=== PATIENT | female | born 1955 | race Caucasian/White ===

== ENCOUNTER 2024-02-28 09:10 | Emergency (ER) | payer MEDICARE, MEDICAID ==
[~2024-02-28] VITALS: Ht 152.4 cm; Wt 116.4 kg
[2024-02-28 11:06] LABS: COVID19 ANTIGEN SOFIA FIA NEGATIVE (NEGATIVE)
[2024-02-28 11:07] LABS: Rapid Influenza A Negative (Negative); Rapid Influenza B Negative (Negative)
[2024-02-28 12:16] VITALS: BP 111/57; PULSE 79; RESP 18; TEMP 97.8; O2SAT 91
== END 2024-02-28 12:23 | disposition home or self-care (01) ==
LOC: ER 09:10
DX: F41.9 Anxiety disorder, unspecified (principal); J44.9 Chronic obstructive pulmonary disease, unspecified; I10 Essential (primary) hypertension; Z86.16 Personal history of COVID-19; Z20.822 Contact with and (suspected) exposure to COVID-19
CPT/HCPCS: 36415; 87426; 87804

== ENCOUNTER 2025-08-10 10:40 | Emergency (ER) | payer MEDICAID ==
[~2025-08-10] VITALS: Ht 152.4 cm; Wt 90.9 kg
--- NOTE | 2025-08-10 11:40 | ED.PDOC ---
General HPI Comments 70 y/o F, with PMHx of UTI's, COPD, bronchitis, and HTN presents to the ED for CC of dysuria. Patient states, she has been experiencing reoccurring urinary symptoms of frequency and dysuria x1week. Patient reports, being seen by her PCP for SS and being prescribed Amoxiclav; endorses finishing course of Abx with no change in symptoms. Patient denies fever, chills, or hematuria. Chief Complaint: Urinary Time Seen by MD: 11:40 Reviewed notes: Nurses Notes, Medications, Allergies Allergies: Coded Allergies: NO KNOWN ALLERGIES (Unverified , 08/10/25) Information Source: Patient Mode of Arrival: Wheelchair Severity: Moderate Timing: Weeks Duration: Since onset Prehospital treatment: None Symptoms: Frequency History of: UTI Modifying factors: None associated signs and symptoms: Dysuria, Frequency Past Medical History PAST MEDICAL HISTORY: COPD, HTN Surgical History: Denies all surgeries [employer] History: Denies all [employer] Hx Family History Family History: Unknown Social History Smoker: Non-Smoker Alcohol: Denies ETOH Use Drugs: Denies Drug Use Lives In: Home Constitutional: denies: chills, diaphoresis, fatigue, fever, malaise, sweats, weakness, others EENTM: denies: blurred vision, double vision, ear bleeding, ear discharge, ear drainage, ear pain, ear ringing, eye pain, eye redness, hearing loss, mouth pain, mouth swelling, nasal discharge, nose bleeding, nose congestion, nose pain, photophobia, tearing, throat pain, throat swelling, voice changes, others Respiratory: denies: cough, hemoptysis, orthopnea, SOB at rest, shortness of breath, SOB with excertion, stridor, wheezing, others Cardiovascular: denies: chest pain, dizzy spells, diaphoresis, Dyspnea on exertion, edema, irregular heart beat, left arm pain, lightheadedness, palpitations, PND, syncope, others Gastrointestinal: denies: abdomen distended, abdominal pain, blood streaked bowels, constipated, diarrhea, dysphagia, difficulty swallowing, hematemesis, melena, nausea, poor appetite, poor fluid intake, rectal bleeding, rectal pain, vomiting, others Genitourinary: reports: dysuria, frequency; denies: abnormal vagina bleeding, burning, dyspareunia, flank pain, hematuria, incontinence, pain, , vagina discharge, urgency, others Neurological: denies: dizziness, fainting, headache, left sided numbness, left sided weakness, numbness, paresthesia, pre-existing deficit, right sided numbness, right sided weakness, seizure, speech problems, tingling, tremors, weakness, others Musculoskeletal: denies: back pain, gout, joint pain, joint swelling, muscle pain, muscle stiffness, neck pain, others Integumetry: denies: bruises, change in color, change in hair/nails, dryness, laceration, lesions, lumps, rash, wounds, others Allergic/Immunocompromised: denies: Difficulty Healing, Frequent Infections, Hives, Itching, others Hematologic/Lymphatic: denies: anemia, blood clots, easy bleeding, easy bruising, swollen glands, others Endocrine: denies: excessive hunger, excessive sweating, excessive thirst, excessive urination, flushing, intolerance to cold, intolerance to heat, unexplained weight gain, unexplained weight loss, others Psychiatric: denies: anxiety, bipolar disorder, depression, hopeless, panic disorder, schizophrenia, sleepless, suicidal, others All Other Systems: Reviewed and Negative Physical Exam General Appearance: No Apparent Distress, Normal HEENT: Normal ENT Inspection, Pharynx Normal Neck: Full Range of Motion, Non-Tender, Normal, Normal Inspection Respiratory: Chest Non-Tender, Lungs Clear, No Accessory Muscle Use, No Respiratory Distress, Normal Breath Sounds Cardiovascular: No Edema, No Murmur, No Gallop, Normal Peripheral Pulses, Regular Rate/Rhythm Breast Exam: Deferred Gastrointestinal: No Organomegaly, Non Tender, No Pulsatile Mass, Normal Bowel Sounds, Soft Genitalia: Deferred Pelvic: Deferred Rectal: Deferred Extremities: No calf tenderness, Normal capillary refill, Normal inspection, Normal range of motion, Non-tender, No pedal edema Musculoskeletal : Apperance: Normal Neurologic: Alert, electric motorman II-XII nml as Tested, No Motor Deficits, Normal Affect, Normal Mood, No Sensory Deficits Cerebellar Function: Normal Reflexes: Normal Skin: Dry, Normal Color, Warm Lymphatic: No Adenopathy Was a procedure done? Was a procedure done?: No Differential Diagnosis Kidney stone (Female): Pyelonephritis, Urinary obstruction, Urolithiasis Kidney stone (Male): Urinary tract infection Penile/Scrotal: Urolithiasis, Urinary Retention Urinary Problem (Male): Urolithiasis, UTI Urinary Problem (Female): Pyelonephritis, Urolithiasis, UTI X-Ray, Labs, Meds, VS Vital Signs Date Time Temp Pulse Resp B/P (MAP) Pulse Ox O2 Delivery O2 Flow Rate FiO2 08/10/25 12:37 70 16 94 Room Air 08/10/25 12:37 97.7 70 16 147/86 (106) 100 97.7 08/10/25 11:59 Room Air* 0 21 08/10/25 11:57 87 17 130/74 (92) 99 08/10/25 10:42 99.2 119 18 116/77 94 99.2 Lab Test 08/10/25 12:36 08/10/25 11:56 Range/Units Urine Color Colorless Yellow Urine Clarity Ex.turbid Clear Urine pH 6.0 5.0-9.[address] [place] 1.011 1.001-1.035 Urine Protein Trace H Negative Urine Ketones Negative Negative Urine Blood 1+ H Negative /uL Urine Nitrite Negative Negative Urine Bilirubin Negative Negative Urine Urobilinogen Normal Negative mg/dL Urine Leukocyte Esterase 3+ Negative /uL Urine RBC 4 0 - 4 /hpf Urine WBC Clumps Present None Seen /hpf Urine Microscopic WBC 1494 H 0-5 /HPF Urine Squamous Epithelial Cells None seen <5 /hpf Urine Bacteria Few H None Seen /hpf Urine Glucose Normal Normal mg/dL White Blood Count 9.6 4.4-10.8 10^3/uL Red Blood Count 4.33 4.0-5.20 10^6/uL Hemoglobin 12.5 12.2-16.2 g/dL Hematocrit 37.7 36.0-46.0 % Mean Corpuscular Volume 87.0 80.0-100.0 fL Mean Corpuscular Hemoglobin 28.8 28.0-32.0 pg Mean Corpuscular Hemoglobin Concent 33.1 32.0-36.0 g/dL Red Cell Distribution Width 14.6 H 11.8-14.3 % Platelet Count 272 140-450 10^3/uL Mean Platelet Volume 7.7 6.9-10.8 fL Neutrophils (%) (Auto) 86.4 H 37.0-80.0 % Lymphocytes (%) (Auto) 5.1 L 10.0-50.0 % Monocytes (%) (Auto) 8.2 0.0-12.0 % Eosinophils (%) (Auto) 0.1 0.0-7.0 % Basophils (%) (Auto) 0.2 0.0-2.0 % Neutrophils # (Auto) 8.3 1.6-8.6 10 ^3/uL Lymphocytes # (Auto) 0.5 0.4-5.4 10 ^3/uL Monocytes # (Auto) 0.8 0-1.3 10 ^3/uL Eosinophils # (Auto) 0 0-0.8 10 ^3/uL Basophils # (Auto) 0 0-0.2 10 ^3/uL Nucleated Red Blood Cells 0.1 % Sodium Level 137 136-145 mmol/L Potassium Level 3.0 L 3.5-5.1 mmol/L Chloride Level 101 98-107 mmol/L Carbon Dioxide Level 24 20-31 mmol/L Anion Gap 12 5-15 Blood Urea Nitrogen 14 9-23 mg/dL Creatinine 1.10 H 0.550-1.02 mg/dL Glomerular Filtration Rate Calc 54 >90 mL/min BUN/Creatinine Ratio 12.7 10.0-20.0 Serum Glucose 88 74-106 mg/dL Calcium Level 8.7 8.7-10.4 mg/dL Time of 1ST Reevaluation: 12:10 Reevaluation 1ST: Unchanged Time of 2ND Reevaluation: 13:50 Reevaluation 2ND: Resolved Patient Education/Counseling: Diagnosis, Treatment, Prognosis, Need For Follow Up Family Education/Counseling: Diagnosis, Treatment, Prognosis, Need For Follow Up, No Family Present Comments This is a patient who presents with a UTI symptoms. She does not have sepsis. She does not have any evidence of pyelonephritis. However she does not have a urinary tract infection. She says she has taken some amoxicillin that was left over. I offered the patient to be admitted to the hospital as she may have was constitute a as failure of treatment for the urinary tract infection however the patient refused. She understands the risks and benefits and chooses to go home. I will start her on Cipro. SEPSIS Sepsis Screen Date sepsis recognized/suspect: Aug 10, 2025 Time Sepsis recognized/suspect: 1042 Recent Procedure: No On Antibiotic Therapy: No Respiratory Rate >20: No Heart Rate >90: Yes Temp<36 C (96.8 F) or >38.3 C: No SBP <90 or MAP <65 mmHG: No New Acute Mental Status Change: No Is the patient on CPAP, BIPAP,: No Physician Orders Potassium Er Tablet (Klor-Con Tablet) (08/10/25 13:45) Cephalexin Capsule (Keflex Capsule) (08/10/25 13:45) Vital Signs Date Time Temp Pulse Resp B/P (MAP) Pulse Ox O2 Delivery O2 Flow Rate FiO2 08/10/25 12:37 70 16 94 Room Air 08/10/25 12:37 97.7 70 16 147/86 (106) 100 97.7 08/10/25 11:59 Room Air* 0 21 08/10/25 11:57 87 17 130/74 (92) 99 08/10/25 10:42 99.2 119 18 116/77 94 99.2 Laboratory Tests Test 08/10/25 11:56 White Blood Count 9.6 10^3/uL (4.4-10.8) Departure 1 Departure Time of Disposition: 13:37 Impression: Primary Impression: UTI (urinary tract infection) Additional Impression: Hypokalemia Disposition: HOME / SELF CARE / HOMELESS Condition: Good e-Prescriptions Ciprofloxacin Hcl (Cipro) 500 Mg Tab 500 MG PO DAILY for 7 Days, #7 TAB Prov: ALLI CHEEK MD 08/10/25 Discharged With: Self, Spouse Critical Care Note Critical Care Time?: No Stability Stability form required: No Heart Score Heart Score: Heart Score Response (Comments) Value History N/A 0 EKG N/A 0 Age N/A 0 Risk Factors N/A 0 Troponin N/A 0 Total 0 I personally scribed for ALLI CHEEK MD ([email or web address]) on 08/10/25 at 11:40. Electronically submitted by Lizy Adorno ([email or web address]). I personally scribed for ALLI CHEEK MD ([email or web address]) on 08/10/25 at 12:24. Electronically submitted by Lizy Adorno ([email or web address]). I personally scribed for ALLI CHEEK MD ([email or web address]) on 08/10/25 at 12:30. Electronically submitted by Lizy Adorno ([email or web address]). ALLI CHEEK MD Aug 10, 2025 11:40
[2025-08-10 12:22] LABS: Hematocrit 37.7 % (36.0-46.0); Hemoglobin 12.5 g/dL (12.2-16.2); Mean Corpuscular Hemoglobin 28.8 pg (28.0-32.0); Mean Corpuscular Volume 87.0 fL (80.0-100.0); Nucleated Red Blood Cells % 0.1 %
[2025-08-10 12:25] LABS: Chloride 101 mmol/L (98-107); Sodium 137 mmol/L (136-145)
[2025-08-10 12:26] LABS: Anion Gap 12 (5-15); Carbon Dioxide 24 mmol/L (20-31)
[2025-08-10 12:27] LABS: Calcium 8.7 mg/dL (8.7-10.4)
[2025-08-10 12:31] LABS: BUN/Creatinine Ratio 12.7 (10.0-20.0); Blood Urea Nitrogen 14 mg/dL (9-23); Glucose 88 mg/dL (74-106)
[2025-08-10 12:37] VITALS: BP 147/86; PULSE 70; RESP 16; TEMP 97.7; O2SAT 94
[2025-08-10 12:44] LABS: Potassium 3.0 mmol/L (3.5-5.1)
[2025-08-10 13:10] LABS: Urine Protein, UAD TRACE (Negative); Urine WBC Clumps PRESENT /hpf (None Seen)
[2025-08-10] MEDS ORDERED: CEPHALEXIN 250 MG CAP PO ONE (13:45)
[2025-08-10] MEDS ORDERED: CIPR-173 PO (13:51)
[2025-08-10] MEDS: POTASSIUM CHL 20 Meq TABLET PO ONE (14:07)
[2025-08-10] MEDS: CIPROFLOXACIN HCL 500 MG TAB PO ONE (14:07)
== END 2025-08-10 14:19 | disposition home or self-care (01) ==
LOC: ER 10:40
DX: N39.0 Urinary tract infection, site not specified (principal); E87.6 Hypokalemia; J44.9 Chronic obstructive pulmonary disease, unspecified; I10 Essential (primary) hypertension; Z87.440 Personal history of urinary (tract) infections
CPT/HCPCS: 36415; 80048; 81001; 85025